=== PATIENT | male | born 1965 | race Two or more races ===

== ENCOUNTER 2024-11-10 10:11 | Emergency (ER) | payer OTHER ==
[~2024-11-10] VITALS: Ht 162.6 cm; Wt 68.0 kg
[2024-11-10 11:47] LABS: APPEARANCE,URINE CLEAR (CLEAR); BLOOD, URINE 2+ Ery/uL (NEGATIVE); LEUKOCYTE ESTERASE ,URINE NEGATIVE (NEGATIVE); NITRITE, URINE NEGATIVE (NEGATIVE); UGLUCOSE NEGATIVE (NEGATIVE)
[2024-11-10 12:04] LABS: ADD URINE CULTURE NO; SQUAMOUS EPITHELIAL CELL,UR 0-2 /HPF (None Seen)
[2024-11-10 12:27] LABS: CALCIUM, SERUM 8.8 mg/dL (8.5-10.1); CREATININE 1.0 mg/dL (0.6-1.3); SODIUM SERUM 141.0 mmol/L (136-145); UREA NITROGEN, BLOOD 18.0 mg/dL (7-18)
[2024-11-10 12:33] LABS: ASPARTATE AMINOTRANSFERASE 18.0 U/L (15-37); TOTAL PROTEIN, SERUM 7.6 g/dL (6.4-8.2)
[2024-11-10 12:37] LABS: PLATELET COUNT (AUTO) 229 K/uL (150-450); RED BLOOD CELL COUNT(AUTO) 4.77 MIL/uL (4.5-6.0); RED CELL DISTRIBUTION WIDTH 14.5 % (11.5-15.0); WHITE BLOOD COUNT (AUTO) 8.9 K/uL (4.3-11.0)
[2024-11-10] MEDS ORDERED: FINA5TAB11 PO (13:11)
[2024-11-10] MEDS ORDERED: TAMS-12 PO (13:11)
[2024-11-10 13:17] VITALS: BP 132/90; TEMP 98; O2SAT 98
== END 2024-11-10 13:17 | disposition home or self-care (01) ==
LOC: ER 10:23
DX: R39.198 Other difficulties with micturition (principal); N21.0 Calculus in bladder; R33.8 Other retention of urine
CPT/HCPCS: 36415; 76856-TC; 80048-TC; 80076-TC; 81001; 83690-TC; 85025-TC

== ENCOUNTER 2024-12-13 21:57 | Emergency (ER) | payer OTHER ==
[~2024-12-13] VITALS: Ht 162.6 cm; Wt 68.0 kg
[~2024-12-13 21:57] MED LIST: FINA5TAB11 PO; TAMS-12 PO
[2024-12-13] MEDS ORDERED: HYDROCODONE/APAP 10/325MG TABLET ONE (23:17)
[2024-12-13] MEDS ORDERED: TDAP [DIPH/PERTUSSIS/TET] 0.5 ML VIAL IM ONE (23:17)
[2024-12-13] MEDS: TDAP [DIPH/PERTUSSIS/TET] 0.5 ML VIAL IM ONE (23:28)
[2024-12-13] MEDS: HYDROCODONE/APAP 5/325MG TABLET PO ONE (23:29)
[2024-12-13] MEDS ORDERED: HYDR-3972 PO (23:48)
[2024-12-13] MEDS ORDERED: GELATIN SPONGE,ABSORBABLE 1 EA SPONGE TP ONE (23:50)
[2024-12-14] MEDS: GELATIN SPONGE,ABSORBABLE 1 SPONGE SPONGE TP ONE (00:08)
[2024-12-14 00:09] VITALS: BP 138/89; TEMP 98; O2SAT 96
== END 2024-12-14 00:09 | disposition home or self-care (01) ==
LOC: ER 22:04
DX: Z89.022 Acquired absence of left finger(s) (principal)
CPT/HCPCS: 73140-TC; 90715